=== PATIENT | male | born 1965 | race Caucasian/White ===

== ENCOUNTER 2019-10-19 14:43 | Emergency (ER) | payer BC ==
[~2019-10-19] VITALS: Ht 170.2 cm; Wt 145.0 kg
[~2019-10-19 14:43] MED LIST: FLUO20CA20 PO; GABA800T5 PO; OLAN5TAB3 PO; OXYC1TAB22 PO; PROP20TA PO; QUET400T4 PO
--- NOTE | 2019-10-19 14:45 | PHYS DOC ---
Past History Past Medical History: Anxiety, Bipolar, Depression, Hypertension, Seizure Past Surgical History: No Surgical History Smoking: Non-smoker Alcohol Use: None Drug Use: None General Adult EDM: Chief Complaint: lower extremity edema HPI: HPI: Patient is a 54 year old male who presents for evaluation of bilateral lower extremity and ankle swelling and pain. Symptoms been progressing for several weeks but much worse over the past couple of days. He states he has pain to his right ankle into his left toes. Patient has seen his primary care provider was supposed to start a water pill but could not get it filled at the pharmacy. Patient states his symptoms are worse because he stands on his feet a lot while working. Patient denies any shortness of air but has had some acute on chronic chest discomfort. Furthermore he has chronic numbness to his left arm. Review of Systems: Review of Systems: Constitutional: Denies fever or chills Eyes: Denies change in visual acuity HENT: Denies nasal congestion or sore throat Respiratory: Denies cough has mild shortness of breath Cardiovascular: mild chronic chest pain with chronic lower leg edema GI: Denies abdominal pain, nausea, vomiting, bloody stools or diarrhea : Denies dysuria Musculoskeletal: Denies back pain or joint pain Integument: Denies rash Neurologic: Denies headache, focal weakness or sensory changes Endocrine: Denies polyuria or polydipsia Lymphatic: Denies swollen glands Psychiatric: Denies depression or anxiety Heart Score: Risk Factors: Risk Factors: DM, Current or recent (<one month) smoker, HTN, HLP, family history of CAD, obesity. Risk Scores: Score 0 - 3: 2.5% MACE over next 6 weeks - Discharge Home Score 4 - 6: 20.3% MACE over next 6 weeks - Admit for Clinical Observation Score 7 - 10: 72.7% MACE over next 6 weeks - Early Invasive Strategies Allergies: Allergies: Allergies Coded Allergies Type Severity Reaction Last Updated Verified No Known Drug Allergies 11/28/15 No Physical Exam: PE: Constitutional: Well developed, well nourished, mild acute distress, non-toxic appearance. [] HENT: Normocephalic, atraumatic, bilateral external ears normal, oropharynx moist, no oral exudates, nose normal. [] Eyes: PERRL, EOMI, conjunctiva normal, no discharge. [] Neck: Normal range of motion, no tenderness, supple, no stridor. [] Cardiovascular:Heart rate regular rhythm, no murmur [] Lungs & Thorax: Bilateral breath sounds clear to auscultation [] Abdomen: Bowel sounds normal, soft, no tenderness. [] Skin: Warm, dry, mild bilateral ankle erythema, no rash, no calf tenderness, no posterior knee tenderness. [] Back: No tenderness, no CVA tenderness. [] Extremities: both ankle tenderness, no cyanosis, no clubbing, ROM intact, mild edema both ankles [] Neurologic: Alert and oriented , normal motor function, normal sensory function, no focal deficits noted. [] Psychologic: Affect normal, judgement normal, mood normal. [] Current Patient Data: Labs: Laboratory Tests Test 10/19/19 15:01 White Blood Count 8.3 x10^3/uL Red Blood Count 5.14 x10^6/uL Hemoglobin 14.2 g/dL Hematocrit 43.2 % Mean Corpuscular Volume 84 fL Mean Corpuscular Hemoglobin 28 pg Mean Corpuscular Hemoglobin Concent 33 g/dL Red Cell Distribution Width 14.2 % Platelet Count 239 x10^3/uL Neutrophils (%) (Auto) 59 % Lymphocytes (%) (Auto) 27 % Monocytes (%) (Auto) 9 % Eosinophils (%) (Auto) 4 % Basophils (%) (Auto) 1 % Neutrophils # (Auto) 4.9 x10^3uL Lymphocytes # (Auto) 2.2 x10^3/uL Monocytes # (Auto) 0.7 x10^3/uL Eosinophils # (Auto) 0.3 x10^3/uL Basophils # (Auto) 0.1 x10^3/uL D-Dimer (Laure) 0.23 mg/L Sodium Level 136 mmol/L Potassium Level 3.6 mmol/L Chloride Level 100 mmol/L Carbon Dioxide Level 27 mmol/L Anion Gap 9 Blood Urea Nitrogen 16 mg/dL Creatinine 1.2 mg/dL Estimated GFR (Cockcroft-Gault) 63.6 BUN/Creatinine Ratio 13 Glucose Level 125 mg/dL Calcium Level 8.6 mg/dL Total Bilirubin 0.4 mg/dL Aspartate Amino Transf (AST/SGOT) 21 U/L Alanine Aminotransferase (ALT/SGPT) 24 U/L Alkaline Phosphatase 65 U/L Troponin I Quantitative < 0.017 ng/mL [id number]-Type Natriuretic Peptide 52 pg/mL Total Protein 7.8 g/dL Albumin 3.3 g/dL Albumin/Globulin Ratio 0.7 EKG: EKG: Normal sinus rhythm, rate 74, leftward axis, flattened T wave lead III, otherwise unremarkable EKG, read at 1520 p.m. [] Radiology/Procedures: Radiology/Procedures: [address] [address] IMAGING REPORT Signed PATIENT: CHEN ZAFAR ACCOUNT: [id number] : 1965 LOCATION: ER AGE: 54 SEX: M EXAM STATUS: REG ER ORD. PHYSICIAN: DEE DEE MELENDEZ DO REASON: short of air PROCEDURE: CHEST AP ONLY Single view of the chest. 10/19/2019 2:54 PM Indication: Reason: short of air / Spl. Instructions: / History: Comparison: None available Findings: There is no focal consolidation. There is no pleural effusion or pneumothorax. The cardiomediastinal silhouette and pulmonary vasculature are within normal limits. No acute osseous abnormalities are seen. Impression: No evidence of acute cardiopulmonary process. Electronically signed by: Jignesh Arevalo MD (10/19/2019 3:08 PM) [id number] DICTATED AND SIGNED BY: JIGNESH AREVALO MD DATE: 10/19/19 1508 CC: SUZETTE MENENDEZ; DEE DEE MELENDEZ DO ~ [] Course & Med Decision Making: Course & Med Decision Making Pertinent Labs and Imaging studies reviewed. (See chart for details) [] Dragon Disclaimer: Dragon Disclaimer: This electronic medical record was generated, in whole or in part, using a voice recognition dictation system. 1650 stable, feeling better at this time. Patient was given prescription for Lasix and low-dose potassium replacement. Differential diagnosis included DVT, congestive heart failure, kidney failure. D-dimer, BNP and kidney function was normal. Chest x-ray was also clear. Cardiac marker was normal. Close follow- up recommended. Patient given work note for couple days of and keep his legs elevated to help get some of the swelling down. Departure Departure: Impression: Primary Impression: Bilateral lower extremity edema Disposition: HOME/RESIDENCE PRIOR TO ADM Condition: STABLE Referrals: SUZETTE MENENDEZ (PCP) Patient Instructions: Peripheral Edema Additional Instructions: Rest and elevate both your lower legs for the next couple of days. Start the Lasix and potassium replacement right away. Call and see your doctor right away and follow-up as well. Return if worsen Scripts Potassium Chloride (KLOR-CON 10) 10 Meq Tablet.er 1 TAB PO DAILY for potassium replacement for 15 Days, #15 TAB 0 Refills Prov: DEE DEE MELENDEZ DO 10/19/19 Furosemide (LASIX) 40 Mg Tablet 1 TAB PO DAILY for peripheral edema for 15 Days, #15 TAB 0 Refills Prov: DEE DEE MELENDEZ DO 10/19/19 Justification of Admission: Justification of Admission: Justification of Admission Dx: N/A DEE DEE MELENDEZ DO Oct 19, 2019 14:45
[2019-10-19 14:46] VITALS: BP 149/78
--- NOTE | 2019-10-19 15:11 | RAD ---
Single view of the chest. 10/19/2019 2:54 PM Indication: Reason: short of air / Spl. Instructions: / History: Comparison: None available Findings: There is no focal consolidation. There is no pleural effusion or pneumothorax. The cardiomediastinal silhouette and pulmonary vasculature are within normal limits. No acute osseous abnormalities are seen. Impression: No evidence of acute cardiopulmonary process. Electronically signed by: Jignesh Lockhart MD (10/19/2019 3:08 PM) [id number]
[2019-10-19 15:23] LABS: BASO # 0.1 x10^3/uL (0.0-0.2); BASO % 1 % (0-3); EOS # 0.3 x10^3/uL (0.0-0.7); EOS % 4 % (0-3); HEMATOCRIT 43.2 % (39.0-53.0); HEMOGLOBIN 14.2 g/dL (13.0-17.5); LYMPH # 2.2 x10^3/uL (1.0-4.8); LYMPH % 27 % (24-48); MEAN CORPUSCULAR HEMOGLOBIN 28 pg (25-35); MEAN CORPUSCULAR HGB CONC 33 g/dL (31-37); MEAN CORPUSCULAR VOLUME 84 fL (79-100); MONO # 0.7 x10^3/uL (0.0-1.1); MONO % 9 % (0-9); NEUT # 4.9 x10^3uL (1.8-7.7); NEUT % 59 % (31-73); PLATELET COUNT 239 x10^3/uL (140-400); RED BLOOD COUNT 5.14 x10^6/uL (4.30-5.70); RED CELL DISTRIBUTION WIDTH 14.2 % (11.5-14.5); WHITE BLOOD COUNT 8.3 x10^3/uL (4.0-11.0)
[2019-10-19 15:32] LABS: CALCIUM 8.6 mg/dL (8.5-10.1); CREATININE 1.2 mg/dL (0.7-1.3); GFR 63.6; POTASSIUM 3.6 mmol/L (3.5-5.1)
[2019-10-19 15:44] LABS: ALBUMIN 3.3 g/dL (3.4-5.0); ALBUMIN/GLOBULIN RATIO 0.7 (1.0-1.7); TOTAL BILIRUBIN 0.4 mg/dL (0.2-1.0); TOTAL PROTEIN 7.8 g/dL (6.4-8.2)
[2019-10-19] MEDS ORDERED: FUROSEMIDE 40 MG TABLET PO ONE (17:00)
[2019-10-19] MEDS ORDERED: POTA10TA5 PO (17:01)
[2019-10-19] MEDS ORDERED: FURO-68 PO (17:01)
--- NOTE | 2019-10-19 17:35 | EKG ---
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
== END 2019-10-19 17:12 | disposition home or self-care (01) ==
LOC: ER 14:43
DX: R60.0 Localized edema (principal); M25.571 Pain in right ankle and joints of right foot; R07.89 Other chest pain; I10 Essential (primary) hypertension; F41.9 Anxiety disorder, unspecified; F31.9 Bipolar disorder, unspecified
CPT/HCPCS: 36415; 71045; 80053; 83880; 84484; 85025; 85379; 93005; 99285

== ENCOUNTER 2020-05-06 22:10 | Inpatient (IN) | payer BC ==
[~2020-05-06] VITALS: Ht 175.3 cm; Wt 133.3 kg
[~2020-05-06 22:10] MED LIST changes: +FURO-68 PO; +POTA10TA5 PO
--- NOTE | 2020-05-06 23:47 | PHYS DOC ---
Past History Past Medical History: No Pertinent History, Hypertension Past Surgical History: No Surgical History Smoking: Non-smoker Alcohol Use: None Drug Use: None General Adult HPI: HPI: ".. I had this sore on my let the past week.. and it not gotten better.. and now the leg hurts.. 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 I had 1 customers it look like I had a blood clot and I had month adjustment should it look like I had cellulitis or diabetic ulcer so I decided I better get come in and get this checked.. " I usually see Anastasia.. but I could not wait..." Patient is a 54 year old male who presents with above hx and complaints right leg ulcers, cellulitis, and swelling for the past week. Patient states swelling and pain is gone more severe the last couple days. Currently it now it hurts to even attempt to ambulate. Patient denies any history of previous coagulopathy. There is a family history of DVTs with grandfather. Patient denies any recent travel. Patient has any ill contacts. Patient normally follows with [facility] for care. No history immunosuppression. No history of MRSA. Patient does not remember his last tetanus vaccination. Review of Systems: Review of Systems: Constitutional: Denies fever or chills Eyes: Denies change in visual acuity HENT: Denies nasal congestion or sore throat Respiratory: Denies cough or shortness of breath Cardiovascular: Denies chest pain or edema GI: Denies abdominal pain, nausea, vomiting, bloody stools or diarrhea : Denies dysuria Musculoskeletal: Complains of right leg pain, edema, ulcer Integument: Denies rash Neurologic: Denies headache, focal weakness or sensory changes Endocrine: Denies polyuria or polydipsia Lymphatic: Denies swollen glands Psychiatric: Denies depression or anxiety Family History: Family History: Grandfather had a history of DVTs, brother has Crohn's, sister has Parkinson's, mother diabetes and hypertension, father had diabetes, Current Medications: Current Meds: See nursing for home meds Allergies: Allergies: Allergies Coded Allergies Type Severity Reaction Last Updated Verified No Known Drug Allergies 11/28/15 No Physical Exam: PE: Constitutional: Moderate acute distress, non-toxic appearance. [] HENT: Normocephalic, atraumatic, bilateral external ears normal, oropharynx moist, no oral exudates, nose normal. [] Eyes: PERRLA, EOMI, conjunctiva normal, no discharge. [] Neck: Normal range of motion, no tenderness, supple, no stridor. Neck more than 70 half inches circumference Cardiovascular:Heart rate regular rhythm, no murmur [] PMI slightly to the left Lungs & Thorax: Bilateral breath sounds equal at apex on auscultation [] Abdomen: Bowel sounds normal, soft, no tenderness, no masses, no pulsatile masses. Morbidly obese Skin: Warm, dry, right leg erythema, venous stasis changes both legs. Has ulcers on right leg. Has cording and calf on right leg. Back: No tenderness, no CVA tenderness. [] Extremities: Right leg tenderness, no cyanosis, no clubbing, ROM intact, right leg edema. [] Neurologic: Alert and oriented X 3, moves all extremities on request, does have distal sensory, no focal deficits noted. [] Psychologic: Affect anxious, judgement normal, mood normal. [] EKG: EKG: My interpretation of EKG shows a sinus rhythm at 82 bpm. There is some left axis changes and as well as a left anterior fascicular block. But no findings of acute STEMI with contralateral changes. [] Radiology/Procedures: Radiology/Procedures: [][address] [address] IMAGING REPORT [address] [address] IMAGING REPORT Signed PATIENT: CHEN ZAFAR ACCOUNT: [id number] : 1965 LOCATION: ER AGE: 54 SEX: M EXAM STATUS: REG ER ORD. PHYSICIAN: DERICK SHARPE MD REASON: edema, pain, cellulitis, abscess, PROCEDURE: PORTABLE CHEST 1V EXAM: CHEST ONE VIEW. HISTORY: Edema, chest pain. COMPARISON: 06/19/2019. FINDINGS: A frontal view of the chest is obtained. There are no confluent infiltrates. There is no pneumothorax or pleural effusion. The heart is mildly enlarged. IMPRESSION: 1. Mild cardiomegaly. Electronically signed by: Michel Meza MD (05/07/2020 1:33 AM) [facility] DICTATED AND SIGNED BY: CARO MEZA MD DATE: 05/07/20131 CC: DERICK SHARPE MD; SUZETTE MENENDEZ ~MTH0 0 Signed PATIENT: CHEN ZAFAR ACCOUNT: [id number] : 1965 LOCATION: ER AGE: 54 SEX: M EXAM STATUS: REG ER ORD. PHYSICIAN: DERICK SHARPE MD REASON: edema, pain, cellulitis, abscess, DISTAL RT LOW LEG PROCEDURE: TIBIA FIBULA RIGHT EXAM: RIGHT TIBIA/FIBULA 2 VIEWS. HISTORY: Edema, pain. COMPARISON: None. FINDINGS: No fractures are identified. There is mild osteoarthritis at the m edial and lateral compartment of the knee. The joint spaces and alignment of the ankle are maintained. There are small to moderate plantar and posterior calcaneal spurs. Subcutaneous edema is noted throughout the leg. IMPRESSION: 1. Subcutaneous edema. No fracture. Electronically signed by: Michel Meza MD (05/07/2020 1:34 AM) [facility] DICTATED AND SIGNED BY: CARO MEZA MD DATE: 05/07/20132 CC: DERICK SHARPE MD; SUZETTE MENENDEZ ~MTH0 0 Heart Score: HEART Score for Chest Pain: HEART Score for Chest Pain Response (Comments) Value History Slighlty/Non-Suspicious 0 ECG Normal 0 Age < 45 0 Risk Factors 1 or 2 Risk Factors 1 Troponin < Normal Limit 0 Total 1 Risk Factors: Risk Factors: DM, Current or recent (<one month) smoker, HTN, HLP, family history of CAD, obesity. Risk Scores: Score 0 - 3: 2.5% MACE over next 6 weeks - Discharge Home Score 4 - 6: 20.3% MACE over next 6 weeks - Admit for Clinical Observation Score 7 - 10: 72.7% MACE over next 6 weeks - Early Invasive Strategies Course & Med Decision Making: Course & Med Decision Making Pertinent Labs and Imaging studies reviewed. (See chart for details) Discussed presentation, testing and treatment plan with . Admit for IV antibiotics and further evaluation of elevated D-dimer and DVT right leg Impression: 1. Cellulitis 2. Elevated D-dimer 0.55 3. Leukocytosis 12.2 4. Right leg venous stasis ulcers 5. Morbid obesity [] Dragon Disclaimer: Dragon Disclaimer: This electronic medical record was generated, in whole or in part, using a voice recognition dictation system. Departure Departure: Referrals: SUZETTE MENENDEZ (PCP) [place] Disclaimer This chart was dictated in whole or in part using Voice Recognition software in a busy, high-work load, and often noisy Emergency Department environment. It may contain unintended and wholly unrecognized errors or omissions. DERICK SHARPE MD May 06, 2020 23:47
[2020-05-07] MEDS ORDERED: IV NORMAL SALINE 50ML 50 ML ONE (00:14)
[2020-05-07] MEDS ORDERED: cefTRIAXone SODIUM 1 GM VIAL ONE (00:14)
[2020-05-07] MEDS ORDERED: IV RINGERS SOLUTION,LACTATED 1,000 ML IV SCH (00:30)
[2020-05-07] MEDS ORDERED: TETANUS AND DIPHTHERIA TOX/PF 0.5 ML VIAL. VAX IM ONE (00:30)
[2020-05-07] MEDS ORDERED: SMZ/TMP 800/160MG TABLET. PO ONE (00:30)
[2020-05-07] MEDS ORDERED: KETOROLAC 30 MG/ML VIAL. IVP ONE (00:30)
[2020-05-07] MEDS ORDERED: ENOXAPARIN ** NOTE DOSE ** SYRINGE SQ ONE (00:30)
[2020-05-07] MEDS ORDERED: DIPH,PERTUSS(ACELL),TET VAC/PF 0.5 ML SYRINGE. VAX IM ONE (00:48)
[2020-05-07 00:57] LABS: BASO # 0.1 x10^3/uL (0.0-0.2); BASO % 1 % (0-3); EOS # 0.1 x10^3/uL (0.0-0.7); EOS % 1 % (0-3); HEMATOCRIT 42.1 % (39.0-53.0); HEMOGLOBIN 13.7 g/dL (13.0-17.5); LYMPH # 1.5 x10^3/uL (1.0-4.8); LYMPH % 13 % (24-48); MEAN CORPUSCULAR HEMOGLOBIN 27 pg (25-35); MEAN CORPUSCULAR HGB CONC 33 g/dL (31-37); MEAN CORPUSCULAR VOLUME 84 fL (79-100); MONO # 1.2 x10^3/uL (0.0-1.1); MONO % 10 % (0-9); NEUT # 9.3 x10^3uL (1.8-7.7); NEUT % 76 % (31-73); PLATELET COUNT 228 x10^3/uL (140-400); RED BLOOD COUNT 5.03 x10^6/uL (4.30-5.70); RED CELL DISTRIBUTION WIDTH 13.9 % (11.5-14.5); WHITE BLOOD COUNT 12.2 x10^3/uL (4.0-11.0)
[2020-05-07 01:04] LABS: BACTERIA,URINE 0 /HPF (0-FEW); BILIRUBIN,URINE SMALL (NEG); CLARITY,URINE CLEAR; COLOR,URINE YELLOW; GLUCOSE,URINE NEG (NEG); NITRITE,URINE NEG (NEG); RBC,URINE 0 /HPF (0-2); UROBILINOGEN,URINE >=8.0 mg/dL (0.2 mg/dL); WBC,URINE RARE /HPF (0-4)
[2020-05-07 01:09] LABS: BARBITURATES NEG (NEG); BENZODIAZEPINES NEG (NEG); CALCIUM 8.8 mg/dL (8.5-10.1); CANNABINOIDS NEG (NEG); COCAINE NEG (NEG); CREATININE 1.2 mg/dL (0.7-1.3); GFR 63.6; METHADONE NEG (NEG); OPIATES NEG (NEG); PHENCYCLIDINE NEG (NEG); POTASSIUM 3.5 mmol/L (3.5-5.1)
[2020-05-07 01:12] LABS: AMPHETAMINE/METHAMPHETAMINE NEG (NEG)
[2020-05-07 01:21] LABS: ALBUMIN 3.1 g/dL (3.4-5.0); C REACTIVE PROTEIN 213.1 mg/L (0-3.3); DIRECT BILIRUBIN 0.2 mg/dL (0.0-0.2); TOTAL BILIRUBIN 0.4 mg/dL (0.2-1.0); TOTAL PROTEIN 8.3 g/dL (6.4-8.2)
--- NOTE | 2020-05-07 01:35 | RAD ---
EXAM: CHEST ONE VIEW. HISTORY: Edema, chest pain. COMPARISON: 06/19/2019. FINDINGS: A frontal view of the chest is obtained. There are no confluent infiltrates. There is no pneumothorax or pleural effusion. The heart is mildly enlarged. IMPRESSION: 1. Mild cardiomegaly. Electronically signed by: Michel Meza MD (05/07/2020 1:33 AM) [facility]
--- NOTE | 2020-05-07 01:36 | RAD ---
EXAM: RIGHT TIBIA/FIBULA 2 VIEWS. HISTORY: Edema, pain. COMPARISON: None. FINDINGS: No fractures are identified. There is mild osteoarthritis at the medial and lateral compart ment of the knee. The joint spaces and alignment of the ankle are maintained. There are small to mode rate plantar and posterior calcaneal spurs. Subcutaneous edema is noted throughout the leg. IMPRESSION: 1. Subcutaneous edema. No fracture. Electronically signed by: Michel Meza MD (05/07/2020 1:34 AM) [facility]
[2020-05-07] MEDS ORDERED: ACETAMINOPHEN 325 MG TABLET PO PRN (02:00)
[2020-05-07] MEDS ORDERED: ONDANSETRON PF 4 MG/2 ML VIAL. IVP PRN (02:00)
[2020-05-07] MEDS ORDERED: ANTI-COAG MONITOR BY PHARMACY. MC PRN (02:00)
--- NOTE | 2020-05-07 02:32 | EKG ---
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
[2020-05-07 02:47] VITALS: BP 120/71
--- NOTE | 2020-05-07 02:50 | NUR ---
The patient, CHEN ZAFAR, 54 y/o, M admitted by ILIANA DESAI MD, was given written information regarding hospital policies, unit procedures and contact persons. Patient admitted to room 113 per gurney from EMS. Patient oriented to room, call light, bed and POC. Call light in reach, Patient instructed to call for assistance to ambulate. Valuables were checked and documented. Patient has wallet with debit card and solo, Patient refused lock up of valuable with security.
[2020-05-07] MEDS ORDERED: FURO20TA3 PO (03:37)
[2020-05-07] MEDS ORDERED: LISI10TA16 PO (03:38)
[2020-05-07] MEDS ORDERED: LORA-627 PO (03:38)
[2020-05-07] MEDS: IV RINGERS SOLUTION,LACTATED 1,000 ML IV SCH ×2 (03:50→10:00)
[2020-05-07 05:14] VITALS: BP 104/62
[2020-05-07] MEDS: KETOROLAC 30 MG/ML VIAL. IVP SCH ×2 (08:41→20:12)
--- NOTE | 2020-05-07 08:49 | RAD ---
EXAM: Bilateral lower extremity venous Doppler. HISTORY: Bilateral lower extremity pain/swelling. COMPARISON: None. FINDINGS: Grayscale and Doppler analysis of the bilateral lower extremity deep venous systems was per formed with graded compression and augmentation. The common femoral, greater saphenous, superficial f emoral, popliteal and calf veins were assessed. There is no evidence of deep venous thrombosis. IMPRESSION: 1. No evidence of deep venous thrombosis in the bilateral lower extremity veins. 2. Incidentally noted mildly enlarged right groin lymph nodes, measuring up to 2.3 cm in length. . LOWER EXTREMITY DUPLEX ARTERY ULTRASOUND Indication: Reason: edema, pain / Spl. Instructions: / History: Comparison: None. Procedure: Arterial 2D and duplex images are obtained of the lower extremity arteries. Findings: Normal triphasic waveforms are present in the common femoral artery, superficial femoral ar amelia, popliteal artery, anterior tibial artery, posterior tibial artery and dorsalis pedis artery of the left lower extremity. Normal triphasic waveforms are present in the common femoral artery, femoral artery, and popliteal ar amelia of the right lower extremity. However, from the posterior tibial artery through the peroneal and anterior tibial arteries, monophasic waveforms are seen. Biphasic waveform in the right dorsalis ped is artery. No markedly decreased or increased velocities in either lower extremity. The bilateral deep femoral arteries show biphasic waveforms. IMPRESSION: Normal arterial flow in the left lower extremity and mild mono phasicity to the flow in the right casey f arteries without a marked abnormality in arterial velocities. This is nonspecific and can be seen i n physiologic states such as post exercise and inflammation. Given the mild lymphadenopathy in the [facility] groin seen on same-day venous duplex ultrasound, inflammation is favored over atherosclerosis as the cause for monophasic waveforms in the right calf arteries. Correlate clinically. Electronically signed by: Libra Dinero MD (05/07/2020 8:47 AM) [facility] [place]
--- NOTE | 2020-05-07 08:49 | RAD ---
EXAM: Bilateral lower extremity venous Doppler. HISTORY: Bilateral lower extremity pain/swelling. COMPARISON: None. FINDINGS: Grayscale and Doppler analysis of the bilateral lower extremity deep venous systems was per formed with graded compression and augmentation. The common femoral, greater saphenous, superficial f emoral, popliteal and calf veins were assessed. There is no evidence of deep venous thrombosis. IMPRESSION: 1. No evidence of deep venous thrombosis in the bilateral lower extremity veins. 2. Incidentally noted mildly enlarged right groin lymph nodes, measuring up to 2.3 cm in length. . LOWER EXTREMITY DUPLEX ARTERY ULTRASOUND Indication: Reason: edema, pain / Spl. Instructions: / History: Comparison: None. Procedure: Arterial 2D and duplex images are obtained of the lower extremity arteries. Findings: Normal triphasic waveforms are present in the common femoral artery, superficial femoral ar amelia, popliteal artery, anterior tibial artery, posterior tibial artery and dorsalis pedis artery of the left lower extremity. Normal triphasic waveforms are present in the common femoral artery, femoral artery, and popliteal ar amelia of the right lower extremity. However, from the posterior tibial artery through the peroneal and anterior tibial arteries, monophasic waveforms are seen. Biphasic waveform in the right dorsalis ped is artery. No markedly decreased or increased velocities in either lower extremity. The bilateral deep femoral arteries show biphasic waveforms. IMPRESSION: Normal arterial flow in the left lower extremity and mild mono phasicity to the flow in the right casey f arteries without a marked abnormality in arterial velocities. This is nonspecific and can be seen i n physiologic states such as post exercise and inflammation. Given the mild lymphadenopathy in the [facility] groin seen on same-day venous duplex ultrasound, inflammation is favored over atherosclerosis as the cause for monophasic waveforms in the right calf arteries. Correlate clinically. Electronically signed by: Libra Dinero MD (05/07/2020 8:47 AM) [facility] [place]
[2020-05-07] MEDS ORDERED: SMZ/TMP 800/160MG TABLET. PO SCH (09:00)
[2020-05-07] MEDS ORDERED: ENOXAPARIN ** NOTE DOSE ** SYRINGE SQ SCH (09:00)
[2020-05-07] MEDS ORDERED: VANCOMYCIN PER PHARMACY MC PRN ×2 (15:15→15:30)
[2020-05-07 15:45] VITALS: BP 110/68
[2020-05-07] MEDS ORDERED: VANCOMYCIN 2 GM in IV NORMAL SALINE 500ML 500 ML IV ONE (16:00)
[2020-05-07] MEDS ORDERED: oxyCODONE/APAP 5/325 1 TAB TABLET PO PRN (16:00)
--- NOTE | 2020-05-07 16:28 | NUR ---
Pharmacy Vancomycin Dosing Note S:Consulted to monitor and dose vancomycin started . O:CHEN ZAFAR is a 54 year old M with Cellulitis, . Height: 5 feet, 9 inches Weight: 130.8 kg [place] Body Weight: 70.70 Adjusted Body Weight: 94.42 Dosing Weight: Actual Other Antibiotics: LABS: Last BUN: 16 Last Creatinine: 1.2 Creatinine Clearance: Last WBC: 12.2 Last Procalcitonin: Tmax (past 24 hours): Microbiology: I/O: Drug Levels: Last level: on at Last dose given 05/07/20 at 1600 Vancomycin Dosing: Loading Dose: 2000 mg x1 Dosing Weight: Actual Target Trough: 10-20 A: Based on: P: 1. Begin Vancomycin 2000 mg IV q12h 2. Follow up Trough level on 05/09/20 at 0330 3. Pharmacy will continue to monitor, follow and adjust therapy as needed. CHRISTOPHE HERNADEZ [facility], 05/07/20 [id number]
--- NOTE | 2020-05-07 17:53 | NUR ---
Order Verified Yes Consent signed Yes Previous PICC placement No Past Medical/Surgical history and current diagnosis reviewed Yes Patient Medical /Surgical History Related to PICC line placement None Special considerations for PICC line placement None PICC placement indication longterm antibiotic usage, Name of PICC Nurse Delia Singletary RN
--- NOTE | 2020-05-07 17:54 | NUR ---
Procedure: Following complete explanation of the PICC procedure including the indications, risks, and potential complications, informed consent was obtained. The possibility for infection was discussed along with signs, symptoms, and prevention. All the patient's questions were answered. IV Device Protocol was used. Written and verbal patient education was provided. Hand hygiene performed. Standardized central line checklist was utilized. The patient was placed in the supine position, the right arm was prepped with chlorhexidine and patient draped with maximum sterile barrier. 2 mL 1% lidocaine was infiltrated into the skin to provide local anesthesia. A thorough assessment of upper extremity completed. Using real-time ultrasound guidance and standardized micro puncture set, the basilic vein was punctured and a peel away sheath was placed using the modified Seldinger technique. A tip location device was used to ensure adequate catheter placement. The catheter was secured using a securement device and an antimicrobial patch was applied directly on the insertion site followed by a transparent dressing. The purple port withdrew blood and flushed without resistance. Patient tolerated the procedure without apparent complication. A single Lumen Power PICC placement successful and uncomplicated. Placement verified by EKG tip confirmation system. Tip located in the low SVC per 3CG green pato and P wave observed Complications:None
[2020-05-07 20:00] VITALS: BP 125/55
[2020-05-07] MEDS: ENOXAPARIN 40 MG/0.4 ML SYRINGE. SQ SCH (20:08)
[2020-05-07] MEDS: POTASSIUM CHLORIDE 20 MEQ TABLET.ER. PO SCH (20:08)
[2020-05-07 22:18] VITALS: BP 105/64
--- NOTE | 2020-05-08 01:39 | HP ---
ADMIT DATE: 05/07/2020 HISTORY OF PRESENT ILLNESS: The patient is a 54-year-old male patient who came to the Emergency Room complaining of sore on his leg that has not gotten any better. There is more redness. While apparently working at the [employer], which is a [employer] store. One of his customers told him that he probably had a blood clot, another one told him that this is a diabetic ulcer and therefore, he decided to come to the Emergency Room for further evaluation and treatment. The swelling and pain is getting more severe over the last couple of days, he cannot walk. The patient has never had any history of clots before. The patient, however, denied any recent travel or trauma. He was basically extensively investigated in the Emergency Room and his chest x-ray was unremarkable. Has had lab work done, which showed he has leukocytosis. D-dimer was slightly elevated at 0.55. Chemistry was mostly unremarkable, except his C-reactive protein was extremely high at 213. However, his urinalysis was unremarkable and toxic screen was negative. Has had venous Doppler ultrasound of lower extremities, which showed that the patient has no evidence of deep vein thrombosis in the bilateral lower extremity veins. Incidentally noted mildly enlarged right groin lymph nodes measuring up to 2.3 cm in length and the arterial Doppler ultrasound showed normal arterial flow in the left lower extremity and mild mono phasicity to the flow in the right calf arteries without marked abnormality in arterial velocities. This is nonspecific and can be seen in physiological state such as post-exercise and inflammation. Given the mild lymphadenopathy in the right groin seen in the same day venous Doppler ultrasound, inflammation is favored over atherosclerosis as a cause of his monophasic waveforms in the right calf arteries. The patient has had also x-ray of the tibia and fibula, which showed only subcutaneous edema, no fracture, and therefore, the patient was admitted with diagnosis of right lower extremity cellulitis and probably right leg venous stasis ulcer. His D-dimer was elevated slightly. He has also morbid obesity and has skin condition consistent with Acanthosis nigricans, although his blood sugar was normal. He was treated with ceftriaxone and Bactrim and was admitted for further evaluation and treatment. PAST MEDICAL HISTORY: Significant for hypertension, has also morbid obesity, obstructive sleep apnea, on CPAP. PAST SURGICAL HISTORY: Significant for tooth extraction and apparently all his teeth were extracted. ALLERGIES: He is allergic to MINT. MEDICATIONS: He is currently on following medications: He is on loratadine, pseudoephedrine for Claritin-D one tablet once a day, lisinopril 10 mg once a day and furosemide 20 mg once a day. FAMILY HISTORY: He has 2 brothers; one is healthy and other has Crohn's disease. His sister is still alive and has Parkinson's disease. One sister was and both parents were , but he does not know the cause of their or their age when they . SOCIAL HISTORY: He is , has no children of his own. He never smoked, does not drink alcohol or use recreational drugs. 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 REVIEW OF SYSTEMS: The patient denied any blurring of vision, cataract, glaucoma or macular degeneration. Denied any earache, tinnitus or sensorineural deafness. Denied any nosebleeds, stuffy nose or postnasal drip. Denied any sore throat, sore tongue, toothache, hoarseness of voice or difficulty swallowing. Denied any nausea, vomiting, diarrhea or constipation. Denied any hematemesis, melena or hematochezia. Denied any dysuria, frequency or hematuria. He denied any chest pain, shortness of breath, orthopnea or paroxysmal nocturnal dyspnea. PHYSICAL EXAMINATION: GENERAL: When I examined him, he looked well and was clearly in no apparent respiratory distress. No pallor, jaundice, cyanosis or thyromegaly. No jugular venous distention. No lower limb edema. VITAL SIGNS: His heart rate was 60, blood pressure was 104/62, temperature 97.5, respiratory rate was 20, and oxygen saturation was 96%. HEAD, EYES, EARS, NOSE AND THROAT: Normocephalic, atraumatic. NECK: Supple. HEART: Showed normal first and second heart sounds. No gallop or murmur. CHEST: Clear to auscultation. No crepitation or rhonchi. ABDOMEN: Distended, soft, nontender. NEUROLOGIC: He is awake, alert, responding appropriately. All cranial nerves intact. EXTREMITIES: He moves extremities without difficulty. He ambulates with a cane, although normally he is able to walk without any assistance or assistive devices. laboratory data: In the Emergency Room showed a white cell count 12,200, hemoglobin 13.7, hematocrit 42, MCV 84 and platelet count of 228,000 with normal manual differential. His chemistry showed a serum sodium 135, potassium 3.5, chloride 98, bicarbonate 25, anion gap of 12, BUN 16, creatinine 1.2, estimated GFR was 64 mL per minute. Glucose 111, calcium was 8.8, magnesium 2. Total bilirubin, AST, ALT, alkaline phosphatase were normal. His total protein was 8.3, albumin was 3.1. Lipase was 224. His C-reactive protein was 213. He has 3 sets of cardiac enzymes that ruled out myocardial infarction. His TSH was 2.577. His prothrombin time was 11.5, INR 1.1, aPTT was 32, and D-dimer was 0.55. Urinalysis showed the urine was essentially unremarkable and toxic screen was negative. His arterial and venous Doppler ultrasound of the right lower extremity was unremarkable. His tibia and fibula showed no fracture, but soft tissue swelling and his chest x-ray showed that there are no confluent infiltrates. There is no pneumothorax, pleural effusion. The heart is mildly enlarged. ASSESSMENT AND PLAN: The patient was admitted with probably venous stasis ulcer and right lower extremity cellulitis. Other medical problems include hypertension, morbid obesity and obstructive sleep apnea. He also has Acanthosis nigricans, sometimes signifies resistance to insulin. My plan is to switch antibiotic to be given as IV vancomycin and plan to arrange for him to have a midline or a PICC line. Meanwhile, we will continue with all his medication and eventually, the patient might be able to be discharged home to be treated with IV antibiotic as an outpatient. I will also consult the wound care team. ILIANA DESAI MD DR: SVETA/mynor JOB#: [id number] / [id number]
[2020-05-08] MEDS: VANCOMYCIN 2 GM in IV NORMAL SALINE 500ML 500 ML IV SCH ×2 (04:19→15:52)
[2020-05-08 05:14] LABS: BASO % 1 % (0-3); EOS # 0.3 x10^3/uL (0.0-0.7); EOS % 5 % (0-3); HEMATOCRIT 39.7 % (39.0-53.0); HEMOGLOBIN 12.9 g/dL (13.0-17.5); LYMPH # 1.9 x10^3/uL (1.0-4.8); LYMPH % 31 % (24-48); MEAN CORPUSCULAR HEMOGLOBIN 27 pg (25-35); MEAN CORPUSCULAR HGB CONC 32 g/dL (31-37); MEAN CORPUSCULAR VOLUME 85 fL (79-100); MONO # 0.6 x10^3/uL (0.0-1.1); MONO % 10 % (0-9); NEUT # 3.4 x10^3uL (1.8-7.7); NEUT % 54 % (31-73); PLATELET COUNT 218 x10^3/uL (140-400); RED CELL DISTRIBUTION WIDTH 14.2 % (11.5-14.5); WHITE BLOOD COUNT 6.2 x10^3/uL (4.0-11.0)
[2020-05-08 05:22] LABS: CALCIUM 8.2 mg/dL (8.5-10.1); CREATININE 1.1 mg/dL (0.7-1.3); GFR 70.3; POTASSIUM 3.9 mmol/L (3.5-5.1)
[2020-05-08 06:04] VITALS: BP 131/67
[2020-05-08] MEDS: POTASSIUM CHLORIDE 20 MEQ TABLET.ER. PO SCH ×2 (08:39→21:10)
[2020-05-08] MEDS: LISINOPRIL 10 MG TABLET PO SCH (08:40)
[2020-05-08] MEDS: CETIRIZINE HCL 10 MG TABLET PO SCH (08:40)
[2020-05-08] MEDS: PSEUDOEPHEDRINE ER 120 MG TABLET.ER. PO SCH (08:40)
[2020-05-08] MEDS: FUROSEMIDE 20 MG TABLET PO SCH (08:40)
[2020-05-08] MEDS: KETOROLAC 30 MG/ML VIAL. IVP SCH ×2 (08:41→21:10)
[2020-05-08] MEDS: ENOXAPARIN 40 MG/0.4 ML SYRINGE. SQ SCH ×2 (08:41→21:11)
[2020-05-08 10:38] VITALS: BP 104/64
[2020-05-08 15:47] VITALS: BP 110/68
--- NOTE | 2020-05-08 16:30 | NUR ---
Wound/Ostomy Care Wound Type/Assessment: RLE open blister of unknown origin. Pt RLE is reddened and edematous. Cleansed wound, wound has yellow crust of dried drainage. Treatment Recommendations/Plan: Cleanse wound, apply medihoney, xeroform and foam dressing. Change every 3 days. Elevate legs. Education provided: PU prevention and wound care POC Offloading surface/device: na Recommended Referrals/Tests: if wound does not heal pt can follow up in C Discharge Recommendations for dressings: continue with above dressing
[2020-05-08 20:22] VITALS: BP 154/77
[2020-05-08] MEDS: LACTOBACILLUS RHAMNOSUS GG 1 CAPSULE. PO SCH (21:10)
--- NOTE | 2020-05-08 21:44 | PN ---
DATE: 05/08/2020 SUBJECTIVE: The patient is resting, slightly propped up in bed, in no apparent distress, sleepy, but arousable. On questioning him, he continued to have pain in his right upper extremity, although the erythema is fading at least partly. OBJECTIVE: GENERAL: When I examined him, he looked well and was clearly in no apparent respiratory distress. No pallor, jaundice, cyanosis or thyromegaly. No jugular venous distention. No lower limb edema. VITAL SIGNS: His heart rate was 63, blood pressure was 104/64, temperature was 97.6, respiratory rate 22, and oxygen saturation was 96%. HEAD, EYES, EARS, NOSE, AND THROAT: Normocephalic, atraumatic. NECK: Supple. HEART: Showed normal first and second heart sounds. No gallop, rub or murmur. CHEST: Clear to auscultation. No crepitation or rhonchi. ABDOMEN: Distended, soft, nontender. NEUROLOGIC: He was sleepy, but arousable. All cranial nerves are intact. He moves extremities without difficulty. He has stasis ulcer on the anterior aspect of the right leg and erythema and it is partly subsiding. ASSESSMENT: 1. Right lower extremity venous stasis ulcer. 2. Right lower extremity cellulitis. 3. Morbid obesity. 4. Hypertension. 5. Obstructive sleep apnea. 6. The patient's blood sugar has been checked in multiple occasions and all the blood sugar values are well within normal range. PLAN: My plan is to continue with vancomycin. While here, he had had a PICC line placed and we will plan to discharge him home to continue on IV daptomycin as an outpatient. ILIANA DESAI MD DR: SVETA/mynor JOB#: [id number] / [id number]
[2020-05-08 22:36] VITALS: BP 109/66
[2020-05-09 01:07] LABS: HEMOGLOBIN A1C 6.1 % (4.8-5.6)
[2020-05-09] MEDS: VANCOMYCIN 2 GM in IV NORMAL SALINE 500ML 500 ML IV SCH ×2 (03:50→16:12)
[2020-05-09 04:27] LABS: CALCIUM 8.7 mg/dL (8.5-10.1); GFR 78.5; POTASSIUM 4.7 mmol/L (3.5-5.1)
[2020-05-09 04:30] LABS: VANC TR 17.7 mcg/mL (10.0-20.0)
[2020-05-09 05:53] VITALS: BP 124/75
[2020-05-09] MEDS: LACTOBACILLUS RHAMNOSUS GG 1 CAPSULE. PO SCH (07:55)
[2020-05-09] MEDS: KETOROLAC 30 MG/ML VIAL. IVP SCH (07:55)
[2020-05-09] MEDS: PSEUDOEPHEDRINE ER 120 MG TABLET.ER. PO SCH (07:55)
[2020-05-09] MEDS: POTASSIUM CHLORIDE 20 MEQ TABLET.ER. PO SCH (07:55)
[2020-05-09] MEDS: FUROSEMIDE 20 MG TABLET PO SCH (07:55)
[2020-05-09] MEDS: CETIRIZINE HCL 10 MG TABLET PO SCH (07:55)
[2020-05-09] MEDS: ENOXAPARIN 40 MG/0.4 ML SYRINGE. SQ SCH (07:56)
[2020-05-09] MEDS: LISINOPRIL 10 MG TABLET PO SCH (07:56)
[2020-05-09 10:29] VITALS: BP 154/73
[2020-05-09 14:14] VITALS: BP 105/64
--- NOTE | 2020-05-09 16:36 | DS ---
DATE OF DISCHARGE: 05/09/2020 HOSPITAL COURSE: The patient is a 54-year-old male patient who was admitted with right lower extremity cellulitis as well as right lower extremity venous stasis ulcer. He was started initially on vancomycin and we arranged for him to have a PICC line and his antibiotic was switched to daptomycin and was discharged home to come on a daily basis for outpatient treatment with IV antibiotic and also daily dressing every other day. PHYSICAL EXAMINATION: GENERAL: When I saw him today, he looked well and was clearly in no apparent respiratory distress. No pallor, jaundice, cyanosis or thyromegaly. No jugular venous distention. No limb edema. VITAL SIGNS: His heart rate was 60, blood pressure was 105/64, temperature 97.6, respiratory rate 20, and oxygen saturation was 98%. HEAD, EYES, EARS, NOSE AND THROAT: Showed normocephalic, atraumatic. NECK: Supple. HEART: Showed normal first and second heart sounds. No gallop, rub or murmur. CHEST: Clear to auscultation. No crepitation or rhonchi. ABDOMEN: Distended, soft, nontender. No guarding or rigidity. No organomegaly. All hernial orifice intact. Bowel sounds normal. NEUROLOGIC: Grossly intact. His right lower extremity swelling and redness has largely subsided, although has completely disappeared. His intake over the last 24 hours was 1440, no output was recorded. LABORATORY DATA: His lab work this morning showed a white cell count of 6200, hemoglobin 12, hematocrit 39, MCV 85 and platelet count 218,000. His chemistry this morning showed a serum sodium 140, potassium 4.7, chloride 106, bicarbonate 27, anion gap of 7, BUN 12, creatinine 1, estimated GFR was 78 mL per minute. His glucose was 95, calcium was 8.7. CK was only 50. His prothrombin time, INR and aPTT as well as D-dimer were all within normal range. Urinalysis was essentially unremarkable. DISCHARGE MEDICATIONS: The patient was discharged home to continue on daptomycin 500 mg IV daily. Continue with all his other medications including lisinopril 10 mg once a day, cetirizine 10 mg once a day, pseudoephedrine 120 mg daily, furosemide 20 mg once a day, potassium chloride 20 mEq twice a day. FINAL DISCHARGE DIAGNOSES: 1. Right lower extremity cellulitis, resolving. 2. Right lower extremity venous stasis ulcer. 3. Morbid obesity. 4. Hypertension. 5. Obstructive sleep apnea. 6. The patient's blood sugar has been consistently well within normal range and he is not diabetic. ILIANA DESAI MD DR: SVETA/mynor JOB#: [id number] / [id number]
--- NOTE | 2020-05-09 19:17 | NUR ---
Discharge Note: CHEN ZAFAR [address] Discharge instructions and discharge home medications reviewed with Patient and a copy given. All questions have been answered and understanding verbalized. Pt ambulated off unit escorted by this nurse. The following instructions and handouts were given: Discontinued lines and drains: PICC LISA Patient discharged to home w/ outpatient infusions scheduled
== END 2020-05-09 19:22 | disposition home or self-care (01) | DRG 602 ==
LOC: ER 22:10 → 1 SOUTH 05-07 01:45
PROVIDERS: ADMIT Internal Medicine; ATTEND Internal Medicine
PROC: 02HV33Z Insertion of Infusion Device into Superior Vena Cava, Percutaneous Approach (ICD-10-PCS; principal; 2020-05-07)
DX: L03.115 Cellulitis of right lower limb (principal); N17.0 Acute kidney failure with tubular necrosis; L97.919 Non-pressure chronic ulcer of unspecified part of right lower leg with unspecified severity; Z68.41 Body mass index [BMI] 40.0-44.9, adult; I10 Essential (primary) hypertension; E66.01 Morbid (severe) obesity due to excess calories; G47.33 Obstructive sleep apnea (adult) (pediatric); I83.019 Varicose veins of right lower extremity with ulcer of unspecified site; Z82.0 Family history of epilepsy and other diseases of the nervous system; Z82.49 Family history of ischemic heart disease and other diseases of the circulatory system; Z83.3 Family history of diabetes mellitus
CPT/HCPCS: 36415; 36569; 71045; 73590; 80048; 80061; 80076; 80202; 80307; 81001; 82550; 82947; 83036; 83690; 83735; 83880; 84443; 84484; 85025; 85379; 85610; 85730; 86140; 87040; 90471; 90714; 93005; 93925; 93970; 96365; 96372; 96375; J0696; J1650; J1885; J3370; J7040; J7120; 99285-25

== ENCOUNTER → 2021-03-19 | Outpatient (CLI) | payer BC ==
[2020-05-19 13:15] VITALS: BP 133/80
[~2021-03-19] MED LIST changes: -FLUO20CA20 PO; +FLUO20CA22 PO; +FURO20TA3 PO; +LISI10TA16 PO; +LORA-627 PO; +POTA-112 PO; -POTA10TA5 PO
--- NOTE | 2021-03-19 18:38 | RAD ---
EXAM: CHEST 2 VIEWS. HISTORY: Cough, weakness, shortness of breath. COMPARISON: 05/07/2020. FINDINGS: Frontal and lateral views of the chest are obtained. There are mild airspace opacities in both bases. There is no pneumothorax or pleural effusion. The he art is mildly enlarged. IMPRESSION: 1. Mild bibasilar infiltrates consistent with atypical pneumonia. 2. Mild cardiomegaly. Electronically signed by: Michel Meza MD (03/19/2021 6:35 PM) [id number]
== END ==
LOC: RAD 17:40
PROVIDERS: ATTEND Nurse Practitioner Family
DX: I51.7 Cardiomegaly (principal); R91.8 Other nonspecific abnormal finding of lung field
CPT/HCPCS: 71046

== ENCOUNTER 2021-07-11 11:18 | Emergency (ER) | payer BC ==
[~2021-07-11] VITALS: Ht 175.3 cm; Wt 133.3 kg
[2021-07-11] MEDS ORDERED: IV NORMAL SALINE 1,000ML 1,000 ML IV SCH (12:00)
[2021-07-11] MEDS ORDERED: ASPIRIN CHEWABLE 81 MG TABLET. PO ONE (12:00)
--- NOTE | 2021-07-11 12:05 | EKG ---
[address] [address] Test Date: 2021-07-11 Test Time: 11:33:01 Pat Name: CHEN ZAFAR Department: Room: Gender: M [employer]: MONIKA : 1965 Requested By: ROB HURLEY Order Number: [id number] Reading MD: Blake Garcia MD Measurements Intervals [place] Rate: 67 P: 26 NH: 174 QRS: -15 QRSD: 96 T: 12 QT: 420 QTc: 447 Interpretive Statements SINUS RHYTHM Electronically Signed On 07-16-2021 9:12:46 CDT by Blake Garcia MD
[2021-07-11 12:12] LABS: BASO # 0.1 x10^3/uL (0.0-0.2); BASO % 1 % (0-3); EOS # 0.3 x10^3/uL (0.0-0.7); EOS % 3 % (0-3); HEMATOCRIT 42.4 % (39.0-53.0); HEMOGLOBIN 13.6 g/dL (13.0-17.5); LYMPH # 2.3 x10^3/uL (1.0-4.8); LYMPH % 23 % (24-48); MEAN CORPUSCULAR HEMOGLOBIN 27 pg (25-35); MEAN CORPUSCULAR HGB CONC 32 g/dL (31-37); MEAN CORPUSCULAR VOLUME 84 fL (79-100); MONO # 0.7 x10^3/uL (0.0-1.1); MONO % 7 % (0-9); NEUT # 6.8 x10^3uL (1.8-7.7); NEUT % 67 % (31-73); PLATELET COUNT 258 x10^3/uL (140-400); RED BLOOD COUNT 5.05 x10^6/uL (4.30-5.70); RED CELL DISTRIBUTION WIDTH 14.8 % (11.5-14.5); WHITE BLOOD COUNT 10.2 x10^3/uL (4.0-11.0)
[2021-07-11 13:29] LABS: CALCIUM 9.2 mg/dL (8.5-10.1); GFR 78.2
[2021-07-11 13:36] LABS: POTASSIUM 4.1 mmol/L (3.5-5.1)
[2021-07-11 13:41] LABS: ALBUMIN 3.4 g/dL (3.4-5.0); ALBUMIN/GLOBULIN RATIO 0.8 (1.0-1.7); MAGNESIUM 1.9 mg/dL (1.8-2.4); TOTAL BILIRUBIN 0.4 mg/dL (0.2-1.0); TOTAL PROTEIN 7.5 g/dL (6.4-8.2)
[2021-07-11] MEDS ORDERED: MORPHINE SULFATE 4 MG/ML DISP.SYRIN. IV ONE (13:45)
--- NOTE | 2021-07-11 13:53 | RAD ---
EXAM: XR CHEST 1V 07/11/2021 12:24 PM CLINICAL INDICATION: Cough, shortness of breath COMPARISON: Chest radiograph 03/19/2021 TECHNIQUE: AP upright view of the chest FINDINGS: The heart is normal in size. Lungs are adequately expanded. No consolidation, pleural effu camryn, or pneumothorax. No acute osseous abnormality. IMPRESSION: No acute cardiopulmonary abnormality. Electronically signed by: Maggie Crystal MD (07/11/2021 1:51 PM) [id number]
[2021-07-11] MEDS ORDERED: IOHEXOL 350 MG/ML 100 ML VIAL. ONE (14:35)
[2021-07-11] MEDS ORDERED: IOHEXOL 350 MG/ML 100 ML VIAL. IV ONE (14:45)
--- NOTE | 2021-07-11 14:50 | PHYS DOC ---
Past History Past Medical History: No Pertinent History, Hypertension Past Surgical History: No Surgical History Smoking: Non-smoker Alcohol Use: None Drug Use: None General Adult EDM: Chief Complaint: CHEST PAIN HPI: HPI: Patient is a 55-year-old male presents with chest pain, left arm numbness and tingling, weakness to left arm and with dizziness and nausea since 10 AM. Patient was at work when pain started. Patient denies taking anything prior to arrival for pain. Patient is also reporting some shortness of breath. history of hypertension. Review of Systems: Review of Systems: ROS At least 10 ROS systems have been reviewed and are negative except as documented in the HPI. General: Negative except as outlined in HPI above. Skin: Negative except as outlined in HPI above. HEENT: Negative except as outlined in HPI above. Neck: Negative except as outlined in HPI above. Respiratory: Negative except as outlined in HPI above.. Cardiovascular: Negative except as outlined in HPI above. Abdomen: Negative except as outlined in HPI above. : Negative except as outlined in HPI above. Back/MSK: Negative except as outlined in HPI above. Neuro: Negative except as outlined in HPI above. Psych: Negative except as outlined in HPI above. Current Medications: Current Meds: Current Medications Medications (Trade) Dose Ordered Sig/Nirav Start Time Stop Time Status Last Admin Dose Admin Aspirin (Aspirin Chewable) 324 mg 1X ONCE 07/11/21 12:00 07/11/21 12:01 DC 07/11/21 12:00 324 MG Iohexol (Omnipaque 350 Mg/ml) 100 ml 1X ONCE 07/11/21 14:45 07/11/21 14:46 Morphine Sulfate (Morphine 4mg Syringe) 4 mg 1X ONCE 07/11/21 13:45 07/11/21 13:46 DC 07/11/21 14:06 4 MG Sodium Chloride 1,000 ml @ 1,000 mls/hr Q1H 07/11/21 12:00 07/11/21 12:59 DC 07/11/21 12:00 1,000 MLS/HR Allergies: Allergies: Allergies Coded Allergies Type Severity Reaction Last Updated Verified No Known Drug Allergies 11/28/15 No Physical Exam: PE: Constitutional: Well developed, well nourished, no acute distress, non-toxic appearance. [] HENT: Normocephalic, atraumatic, bilateral external ears normal, oropharynx mo ist, no oral exudates, nose normal. [] Eyes: PERRLA, EOMI, conjunctiva normal, no discharge. [] Neck: Normal range of motion, no tenderness, supple, no stridor. [] Cardiovascular:Heart rate regular rhythm, no murmur [] Lungs & Thorax: Bilateral breath sounds clear to auscultation, no wheezing Abdomen: Bowel sounds normal, soft, no tenderness, no masses, no pulsatile masses. [] Skin: Warm, dry, no erythema, no rash. [] Back: No tenderness, no CVA tenderness. [] Extremities: No tenderness, no cyanosis, no clubbing, ROM intact, no edema. [] Neurologic: Alert and oriented X 3, normal motor function, normal sensory function, left arm numbness, tingling, weakness Psychologic: Affect normal, judgement normal, mood normal. [] Current Patient Data: Labs: Laboratory Tests Test 07/11/21 11:30 07/11/21 12:23 White Blood Count 10.2 x10^3/uL (4.0-11.0) Red Blood Count 5.05 x10^6/uL (4.30-5.70) Hemoglobin 13.6 g/dL (13.0-17.5) Hematocrit 42.4 % (39.0-53.0) Mean Corpuscular Volume 84 fL (79-100) Mean Corpuscular Hemoglobin 27 pg (25-35) Mean Corpuscular Hemoglobin Concent 32 g/dL (31-37) Red Cell Distribution Width 14.8 % (11.5-14.5) H Platelet Count 258 x10^3/uL (140-400) Neutrophils (%) (Auto) 67 % (31-73) Lymphocytes (%) (Auto) 23 % (24-48) L Monocytes (%) (Auto) 7 % (0-9) Eosinophils (%) (Auto) 3 % (0-3) Basophils (%) (Auto) 1 % (0-3) Neutrophils # (Auto) 6.8 x10^3uL (1.8-7.7) Lymphocytes # (Auto) 2.3 x10^3/uL (1.0-4.8) Monocytes # (Auto) 0.7 x10^3/uL (0.0-1.1) Eosinophils # (Auto) 0.3 x10^3/uL (0.0-0.7) Basophils # (Auto) 0.1 x10^3/uL (0.0-0.2) Sodium Level 136 mmol/L (136-145) Potassium Level 4.1 mmol/L (3.5-5.1) Chloride Level 97 mmol/L (98-107) L Carbon Dioxide Level 26 mmol/L (21-32) Anion Gap 13 (6-14) Blood Urea Nitrogen 13 mg/dL (8-26) Creatinine 1.0 mg/dL (0.7-1.3) Estimated GFR (Cockcroft-Gault) 78.2 BUN/Creatinine Ratio 13 (6-20) Glucose Level 122 mg/dL (70-99) H Calcium Level 9.2 mg/dL (8.5-10.1) Magnesium Level 1.9 mg/dL (1.8-2.4) Total Bilirubin 0.4 mg/dL (0.2-1.0) Aspartate Amino Transferase (AST) 33 U/L (15-37) Alanine Aminotransferase (ALT) 30 U/L (16-63) Alkaline Phosphatase 76 U/L (46-116) Troponin I High Sensitivity 7 ng/L (4-75) Total Protein 7.5 g/dL (6.4-8.2) Albumin 3.4 g/dL (3.4-5.0) Albumin/Globulin Ratio 0.8 (1.0-1.7) L D-Dimer (Laure) 0.25 mg/L (0.00-0.50) Vital Signs: Vital Signs Date Time Temp Pulse Resp B/P (MAP) Pulse Ox O2 Delivery O2 Flow Rate FiO2 07/11/21 14:06 16 07/11/21 12:22 70 110/72 (85) 97 Room Air 07/11/21 11:22 98.4 EKG: EKG: [] Radiology/Procedures: Radiology/Procedures: []EXAM: CTA HEAD AND NECK W/WO CONTRAST DATE: 07/11/2021 3:12 PM INDICATION: numbness left arm,headache TECHNIQUE: CTA angiogram of the head and neck was obtained after IV bolus administration of 100 cc of Omnipaque 350. The images were sent to workstation and multiplanar reconstructions were obtained. Multiplanar reconstruction images to include MIP and 3-D reconstruction images are submitted. One or more of the following dose reduction techniques were utilized: Automated exposure control (AEC), Adjustment of mA and/or kV according to patient size, Use of iterative reconstruction technique such as ASiR, CT scan done according to ALARA and image gently/image wisely COMPARISON: None. FINDINGS: CTA Head: The visualized distal internal carotid arteries, anterior and middle cerebral arteries are patent and normal caliber. The distal vertebral arteries, basilar artery, and posterior cerebral arteries are patent and normal caliber. No aneurysm or arteriovenous malformation is seen. No acute hemorrhage, large territory saxena-white loss, space-occupying mass, or hydrocephalus. CTA Neck: Right carotid: The right common carotid artery is patent and normal caliber. The carotid bifurcation is normal. No stenosis of the right internal carotid artery per NASCET criteria. The right external carotid artery is patent. Left carotid: The left common carotid artery is patent and normal caliber. The carotid bifurcation is normal. No stenosis of the left internal carotid artery per NASCET criteria. The left external carotid artery is patent. Right vertebral: The right vertebral artery is patent and normal caliber. Left vertebral: The left vertebral artery is patent and normal caliber. The visualized portions of the aortic arch are normal. The origins of the brachiocephalic and subclavian arteries are normal. No cervical lymphadenopathy. The thyroid gland is normal. The parotid and submandibular glands are normal. The visualized aerodigestive tract is unremarkable. The cervical spine is normal. The visualized portions of the lungs are clear. IMPRESSION: 1. No aneurysm. No intracranial stenosis or occlusion. 2. No stenosis of the cervical carotid or vertebral arteries. PQRS Compliance Statement - Stenosis calculations for CT, MR and conventional angiography are based upon measurement of the distal ICA diameter in accordance with the NASCET methodology. Electronically signed by: José Antonio Dietz MD (07/11/2021 3:24 PM) [id number] EXAM: XR CHEST 1V 07/11/2021 12:24 PM CLINICAL INDICATION: Cough, shortness of breath COMPARISON: Chest radiograph 03/19/2021 TECHNIQUE: AP upright view of the chest FINDINGS: The heart is normal in size. Lungs are adequately expanded. No consolidation, pleural effusion, or pneumothorax. No acute osseous abnormality. IMPRESSION: No acute cardiopulmonary abnormality. Electronically signed by: Maggie Crystal MD (07/11/2021 1:51 PM) [id number] Heart Score: C/O Chest Pain: Yes HEART Score for Chest Pain: HEART Score for Chest Pain Response (Comments) Value History Moderately Suspicious 1 ECG Normal 0 Age >45 - < 65 1 Risk Factors 1 or 2 Risk Factors 1 Troponin < Normal Limit 0 Total 3 Risk Factors: Risk Factors: DM, Current or recent (<one month) smoker, HTN, HLP, family history of CAD, obesity. Risk Scores: Score 0 - 3: 2.5% MACE over next 6 weeks - Discharge Home Score 4 - 6: 20.3% MACE over next 6 weeks - Admit for Clinical Observation Score 7 - 10: 72.7% MACE over next 6 weeks - Early Invasive Strategies Course & Med Decision Making: Course & Med Decision Making Pertinent Labs and Imaging studies reviewed. (See chart for details) [] 55-year-old male presents with chest pain, left arm weakness, numbness and tingling. Patient also reported some dizziness and nausea that started at 10 AM while he was at work. Work-up in ER consisted of CBC, CMP, urinalysis, EKG, chest x-ray, troponin. CTA ordered due to numbness and tingling in left arm. NIH of 1 due to sensation changes. Patient given 324 of aspirin. Heart score of 3. D-dimer is 0.25. Troponin is negative. Patient is reporting increase in headache. Chest pain and arm numbness are still present. Patient given [address] head and neck ordered to rule out any acute findings. Second troponin is negative. CTA is unremarkable. No acute findings. I discussed all results with patient. Advised patient to follow-up tomorrow with PCP and cardiology. Discussed return precautions at length. Patient verbalizes understanding of discharge instructions. Montserrat Disclaimer: Montserrat Disclaimer: This electronic medical record was generated, in whole or in part, using a voice recognition dictation system. Departure Departure: Impression: Primary Impression: Chest pain Qualified Codes: R07.9 - Chest pain, unspecified Additional Impression: Arm numbness left Disposition: HOME / SELF CARE / HOMELESS Condition: STABLE Referrals: SUZETTE MENENDEZ (PCP) Patient Instructions: Chest Pain (Nonspecific), [id number] Additional Instructions: You are seen emergency room for chest pain and left arm numbness. All of your labs are unremarkable. CT of your head was unremarkable as well. I need you to follow-up with your PCP and possibly cardiology for further management. Return to the emergency with you have worsening symptoms or concerns such as increase in dizziness, numbness and tingling, chest pain, shortness of breath. EMERGENCY DEPARTMENT GENERAL DISCHARGE INSTRUCTIONS Thank you for coming to [facility] (ED) today and trusting us with you care. We trust that you had a positivie experience in our Emergency Department. If you wish to speak to the department management, you may call the director at [phone]. YOUR FOLLOW UP INSTRUCTIONS ARE FOLLOWS: 1. Do you have a private Doctor? If you do not have a private doctor, please ask for a resource list of physicians or clinics that may be able to assist you with follow up care. 2. The Emergency Physician has interpreted your x-rays. The X-Ray specialist will also review them. If there is a change in the findings, you will be notified in 48 hours when at all possible. 3. A lab test or culture has been done, your results will be reviewed and you will be notified if you need a change in treatment. ADDITIONAL INSTRUCTIONS AND INFORMATION: 1. Your care today has been supervised by a physician who is specially trained in emergency care. Many problems require more than one evaluation for a complete diagnosis and treatment. We recommend that you schedule your follow up appointment as recommended to ensure complete treatment of you illness or injury. If you are unable to obtain follow up care and continue to have a problem, or if your condition worsens, we recommend that you return to the ED. 2. We are not able to safely determine your condition over the phone nor are we able to give sound medical advice over the phone. For these safety reasons, if you call for medical advice we will ask you to come to the ED for further evaluation. 3. If you have any questions regarding these discharge instructions please call the ED at [phone]. SAFETY INFORMATION: In the interest of safety, wellness, and injury prevention; we encourage you to wear your sealbelt, if you smoke; quite smoking, and we encourage family to use a protective helmet for bicycling and other sporting events that present an increased risk for head injury. IF YOUR SYMPTOMS WORSEN OR NEW SYMPTOMS DEVELOP, OR YOU HAVE CONCERNS ABOUT YOUR CONDITION; OR IF YOUR CONDITION WORSENS WHILE YOU ARE WAITING FOR YOUR FOLLOW UP APPOINTMENT; EITHER CONTACT YOUR PRIMARY CARE DOCTOR, THE PHYSICIAN WHOSE NAME AND NUMBER YOU WERE GIVEN, OR RETURN TO THE ED IMMEDIATELY. ROB HURLEY APRN July 11, 2021 14:50
[2021-07-11 15:12] LABS: BACTERIA,URINE 0 /HPF (0-FEW); CLARITY,URINE CLEAR; COLOR,URINE YELLOW; GLUCOSE,URINE NEG (NEG); NITRITE,URINE NEG (NEG); RBC,URINE 0 /HPF (0-2); UROBILINOGEN,URINE 0.2 mg/dL (0.2 mg/dL); WBC,URINE 0 /HPF (0-4)
--- NOTE | 2021-07-11 15:27 | RAD ---
EXAM: CTA HEAD AND NECK W/WO CONTRAST DATE: 07/11/2021 3:12 PM INDICATION: numbness left arm,headache TECHNIQUE: CTA angiogram of the head and neck was obtained after IV bolus administration of 100 cc of Omnipaque 350. The images were sent to workstation and multiplanar reconstructions were obtained. M ultiplanar reconstruction images to include MIP and 3-D reconstruction images are submitted. One or more of the following dose reduction techniques were utilized: Automated exposure control (AEC ), Adjustment of mA and/or kV according to patient size, Use of iterative reconstruction technique wilcox ch as ASiR, CT scan done according to ALARA and image gently/image wisely COMPARISON: None. FINDINGS: CTA Head: The visualized distal internal carotid arteries, anterior and middle cerebral arteries are patent and normal caliber. The distal vertebral arteries, basilar artery, and posterior cerebral arteries are p atent and normal caliber. No aneurysm or arteriovenous malformation is seen. No acute hemorrhage, large territory saxena-white loss, space-occupying mass, or hydrocephalus. CTA Neck: Right carotid: The right common carotid artery is patent and normal caliber. The carotid bifurcation is normal. No stenosis of the right internal carotid artery per NASCET criteria. The right external c arotid artery is patent. Left carotid: The left common carotid artery is patent and normal caliber. The carotid bifurcation is normal. No stenosis of the left internal carotid artery per NASCET criteria. The left external carot id artery is patent. Right vertebral: The right vertebral artery is patent and normal caliber. Left vertebral: The left vertebral artery is patent and normal caliber. The visualized portions of the aortic arch are normal. The origins of the brachiocephalic and subclav dede arteries are normal. No cervical lymphadenopathy. The thyroid gland is normal. The parotid and submandibular glands are no rmal. The visualized aerodigestive tract is unremarkable. The cervical spine is normal. The visualized portions of the lungs are clear. IMPRESSION: 1. No aneurysm. No intracranial stenosis or occlusion. 2. No stenosis of the cervical carotid or vertebral arteries. PQRS Compliance Statement - Stenosis calculations for CT, MR and conventional angiography are based u katty measurement of the distal ICA diameter in accordance with the NASCET methodology. Electronically signed by: José Antonio Dietz MD (07/11/2021 3:24 PM) [id number]
[2021-07-11 16:38] VITALS: BP 112/73
== END 2021-07-11 17:06 | disposition home or self-care (01) ==
LOC: ER 11:18
DX: R07.9 Chest pain, unspecified (principal); R20.2 Paresthesia of skin; R06.02 Shortness of breath; R42 Dizziness and giddiness; R11.0 Nausea; R53.1 Weakness; I10 Essential (primary) hypertension
CPT/HCPCS: 36415; 70496; 70498; 71045; 80053; 81001; 83735; 84484; 85025; 85379; 93005; 96361; 96374; 99285; J2270; J7030; Q9967